=== PATIENT | male | born 1990 | race Asian ===

== ENCOUNTER → 2020-08-11 09:26 | Outpatient (CLI) | payer OTHER, SELFPAY ==
[2020-08-13 09:06] LABS: COVID19 Sendout Not Detected (Not Detect)
== END ==
PROVIDERS: Visit Provider Nurse Practitioner
DX: Z11.59 Encounter for screening for other viral diseases (principal)
CPT/HCPCS: 87635

== ENCOUNTER 2020-08-14 06:42 | Day surgery (SDC) | payer OTHER, SELFPAY ==
--- NOTE | 2020-08-14 | PATH_ITS ---
[facility] Accession Number: [id number] . 01 Material submitted: . esophagus, E-G Junction - GE JUNCTION . 02 Diagnosis: GE Junction: Acute erosive esophagitis. Negative for intestinal metaplasia by alcian blue stain. Negative for dysplasia or malignancy. Negative for fungal organisms by alcian blue PAS stain. MRV 08/20/2020 1514 Local . 02 Comment: Alcian blue / PAS: The control tissue stained appropriately. . 02 Electronically signed: . Diya Ivan MD, Pathologist NPI- [id number] . 01 Gross description: . GE JUNCTION: Received in formalin are minute fragment(s) of warren, soft tissue measuring 0.4 x 0.4 x 0.1 cm in aggregate submitted entirely in 1 cassette(s) /QBJ 08/15/2020 0906 Local . 02 Pathologist provided ICD-10: K20.90 . 02 CPT . 926430, 324374 Performed at: 01 [facility] [address], [place], [place] [id number] MD Sacha Rojas MD Phone: [phone] Performed at: [address] [facility] [address] [place], [place] [id number] MD Sonya Mcgrath MD Phone: [phone]
[2020-08-14 07:19] VITALS: BP 145/89; PULSE 71; RESP 18; TEMP 36.7; O2SAT 97; BMI 26.1
[2020-08-14] MEDS: LACTATED RINGERS 1,000 ML 42 ML IV (07:32)
--- NOTE | 2020-08-14 07:42 | PM.PREOP ---
Pre-operative Note COVID-19 COVID-19 status: Negative Result date/Date tested (Pos, Neg/Pending): 08/11/20 Interval Note History & Physical reviewed/Exam performed by Physician: Yes Changes to H&P: No ASA Class (for procedural sedation): I
[2020-08-14] MEDS: MIDAZOLAM 5 MG/5 ML VIAL IV (07:50)
[2020-08-14] MEDS: fentaNYL 250 MCG/5 ML INJ IV (07:50)
[2020-08-14] MEDS: LIDOCAINE 4% SOLN 50 ML 20 ML TOP (07:59)
--- NOTE | 2020-08-14 08:01 | P.OP.ENDO_ITS ---
Operative Date/Time/Diagnoses Date of procedure: 08/14/20 Time of procedure: 08:01 Pre-op diagnosis: History of esophageal ulcer Post-op diagnosis: same (Incomplete healing of an esophageal ulcer with a Schatzki ring) Procedure & Clinicians Study performed: EGD with cold biopsy Same procedure as scheduled: Yes Indications: Determine healing of an esophageal ulcer Surgeon: Swapnil Reaves Procedure Notes SCOAP/Timeout: Perform Procedure in detail: The patient had topical anesthetic applied to oropharynx. She was placed in left lateral decubitus position and underwent IV sedation directed by the surgeon consisting of fentanyl and Versed. A bite block was inserted and the scope was advanced through it into the esophagus. Vocal cords are normal. The esophagus was unremarkable until I reach the GE junction. 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 There was no narrowing however.. GE junction was noted at 39 cm from the incisors.. The stomach insufflated well. There were no lesions seen in the body, antrum or at the incisura. The pyloric channel was widely patent. The duodenum was unremarkable to the 4th part. The scope was brought back into the stomach and retroflexed. The proximal stomach normal in appearance. There was no evidence of a hiatal hernia.. The scope was straightened and brought out through the esophagus again. Biopsies were taken in the region of the GE junction. No other lesions were seen. The scope was removed and the patient tolerated the procedure well. 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 No narrowing of the esophagus however.) Specimen(s): other (Biopsies had the GE junction region including the Schatzki ring and the area of ulceration and possible Arciniega's.) Complications: none Post-procedure Recommendations: Continue medication(s) (Omeprazole) and Other recommendation (Repeat EGD in 12 weeks.) Follow up: weeks (Twelve) Disposition: PACU
[2020-08-14 08:03] VITALS: BP 112/80; PULSE 72; RESP 10; TEMP 36.4; O2SAT 99
[2020-08-14 08:08] VITALS: BP 112/78; PULSE 78; RESP 11; TEMP 36.4; O2SAT 98
[2020-08-14 08:12] VITALS: BP 115/77; PULSE 73; RESP 16; TEMP 36.4; O2SAT 99
[2020-08-14 08:18] VITALS: BP 131/90; PULSE 78; RESP 15; TEMP 36.8; O2SAT 100
[2020-08-14 08:22] VITALS: BP 122/88; PULSE 66; RESP 10; TEMP 36.7; O2SAT 100
== END 2020-08-14 08:35 | disposition home or self-care (01) ==
PROVIDERS: Referring Provider Specialist; Visit Provider Specialist
PROC: 0DJ08ZZ Inspection of Upper Intestinal Tract, Via Natural or Artificial Opening Endoscopic (ICD-10-PCS; CPT 43235; principal; 2020-08-14 07:45)
DX: K20.8 Other esophagitis (principal); K22.2 Esophageal obstruction
CPT/HCPCS: 43239; J2250; J3010

== ENCOUNTER → 2020-11-21 15:37 | Outpatient (CLI) | payer OTHER, SELFPAY ==
[2020-11-21 16:22] LABS: COVID19 -Nasal RAPID Negative (Negative)
== END ==
PROVIDERS: Visit Provider Specialist
DX: Z01.812 Encounter for preprocedural laboratory examination (principal); Z20.822 Contact with and (suspected) exposure to COVID-19
CPT/HCPCS: 87635; C9803

== ENCOUNTER 2020-11-22 09:42 | Day surgery (SDC) | payer OTHER, SELFPAY ==
[2020-11-22] VITALS (8 sets, daily range): BP systolic 105–125; BP diastolic 61–86; PULSE 60–75; RESP 10–18; TEMP 36.4–37; O2SAT 96–100; BMI 23.9
--- NOTE | 2020-11-22 | PATH_ITS ---
[facility] Accession Number: [id number] . 01 Material submitted: . esophagus, E-G Junction - GE JUNCTION . 02 Diagnosis: Gastroesophageal Junction, Biopsy: Squamocolumnar junctional mucosa with no diagnostic abnormality. Negative for intestinal metaplasia. Negative for dysplasia and malignancy. MRV 11/27/2020 1252 Local . 02 Electronically signed: . Sonya Mcgrath MD, Pathologist NPI- [id number] . 01 Gross description: . GE JUNCTION: Received in formalin are minute fragment(s) of warren, soft tissue measuring 0.5 x 0.5 x 0.1 cm in aggregate submitted entirely in 1 cassette(s) /QBJ 11/23/2020 0842 Local . 02 Pathologist provided ICD-10: K22.10 . 02 CPT . 504278 Performed at: 01 [facility] [address], [place], [place] [id number] MD Sacha Rojas MD Phone: [phone] Performed at: [address] [facility] [address] [place], [place] [id number] MD Sonya Mcgrath MD Phone: [phone]
[2020-11-22] MEDS: fentaNYL 250 MCG/5 ML INJ IV (11:23)
[2020-11-22] MEDS: MIDAZOLAM 5 MG/5 ML VIAL IV (11:23)
[2020-11-22] MEDS: LIDOCAINE 4% SOLN 50 ML 20 ML TOP (11:23)
--- NOTE | 2020-11-22 11:40 | PM.PREOP ---
Pre-operative Note COVID-19 COVID-19 status: Negative Result date/Date tested (Pos, Neg/Pending): 11/21/20 Interval Note History & Physical reviewed/Exam performed by Physician: Yes Changes to H&P: No ASA Class (for procedural sedation): I
--- NOTE | 2020-11-22 11:58 | P.OP.ENDO_ITS ---
Operative Date/Time/Diagnoses Date of procedure: 11/22/20 Time of procedure: 11:58 Pre-op diagnosis: History of esophageal ulcer Post-op diagnosis: same (Ulcer is healed. Small hiatal hernia. Biopsies taken of the GE junction.) Procedure & Clinicians Study performed: EGD with cold biopsy Same procedure as scheduled: Yes Indications: Determine if ulcer her in the office off because his healed. Surgeon: Swapnil Reaves Procedure Notes SCOAP/Timeout: Performed Procedure in detail: The patient had topical anesthetic applied to oropharynx. She was placed in left lateral decubitus position and underwent IV sedation dir ected by the surgeon consisting of fentanyl and Versed. A bite block was inserted and the scope was advanced through it into the esophagus. The esophagus was unremarkable. GE junction was noted at 36 cm from the incisors. There was an unusually well demarcated straight line on almost suggesting the beginning of a Schatzki ring. Just below this was a 1-2 cm hiatal hernia.. The stomach insufflated well. There were no lesions seen in the body, antrum or at the incisura. The pyloric channel was patent. The duodenum was unremarkable to the 4th part. The scope was brought back into the stomach and retroflexed. The proximal stomach was normal except that I could see the hiatal hernia from below.. The scope was straightened and brought out through the esophagus again. I chose to take biopsies right at the GE junction. No other lesions were seen. The scope was removed and the patient tolerated the procedure well.. Scope withdrawal time: Not applicable Sedation minutes: 12 Findings: hiatal hernia (Small) and other findings (Ulcers healed.) Specimen(s): other (GE junction biopsies) Complications: none Post-procedure Plan for aftercare: Continue omeprazole for another month. Then you may stop it. Follow up: as needed Disposition: PACU
== END 2020-11-22 12:50 | disposition home or self-care (01) ==
PROVIDERS: Referring Provider Specialist; Visit Provider Specialist
PROC: 0DJ08ZZ Inspection of Upper Intestinal Tract, Via Natural or Artificial Opening Endoscopic (ICD-10-PCS; CPT 43235; principal; 2020-11-22 10:45)
DX: Z09 Encounter for follow-up examination after completed treatment for conditions other than malignant neoplasm (principal); Z87.19 Personal history of other diseases of the digestive system; F17.210 Nicotine dependence, cigarettes, uncomplicated; K44.9 Diaphragmatic hernia without obstruction or gangrene
CPT/HCPCS: 43239; 99152; J2250; J3010